=== PATIENT | female | born 1975 | race Caucasian/White ===

== ENCOUNTER 2021-04-20 19:32 | Emergency (ER) | payer OTHER ==
[~2021-04-20] VITALS: Ht 157.5 cm; Wt 54.0 kg
--- NOTE | 2021-04-20 19:50 | PHYS DOC ---
Past History Past Medical History: Cancer General Adult EDM: Chief Complaint: FACE PAIN HPI: HPI: ".. I ve been dizzy off and on for past couple months.. but today I fell down the stairs.. at the foot ball game. " Patient is a 46 year old female who presents with above hx and complaints of being dizzy prior to a fall resulting in facial pain, abrasions and lacerations to his nose bridge.. Patient states that she has had dizzy problems for the past 2-week. Patient denies any loss of consciousness with the fall. Witnesses state there were no seizure activity. She has some mild upper neck tenderness. Has extensive abrasions over facial area with a 1 cm flap laceration to bridge of nose. Patient has obvious mild displacement consistent with bilateral nasal fractures. There is no septal hematoma. Extraocular muscles appear to be intact. No double vision. No loss of field. Fundi limited but grossly intact. Patient also has a contusion with abrasion of the right shoulder area. Patient states sometimes she has a warning that if she is getting lightheaded and sits down. However other times she has no warning which are usually results in a fal l. Patient states the past 2 weeks she has had 6 falls or episodes where she becomes dizzy enough to require her to sit down. Pt. normally follows with Shakir Krishnan for medical care. Hx. Uterine cancer and hysterectomy. Patient is currently following with a neurologist at [facility]. And does have follow-up appointment. Patient denies any previous heart issues. No recent travel. No specific ill contacts. No fever or chills. Patient has had somewhat complex medical history the past year which she was diagnosed with uterine cancer and underwent hysterectomy and oophorectomy. Reportedly had no nodes positive for the cancer. Reportedly cancer cells did exhibit markers that can be followed. Patient normally follows with Adilia Krishnan for care. No history of travel. No history of ill contacts. No history immunosuppression. No history recent fever or chills. Reportedly patient is up-to-date with tetanus. Review of Systems: Review of Systems: Constitutional: Denies fever or chills Eyes: Denies change in visual acuity HENT: Complains of facial pain, abrasions, nasal congestion . Respiratory: Denies cough or shortness of breath Cardiovascular: Denies chest pain or edema GI: Denies abdominal pain, nausea, vomiting, bloody stools or diarrhea : Denies dysuria Musculoskeletal: Denies back pain or joint pain Integument: Denies rash Neurologic: Denies headache, focal weakness or sensory changes. Complains of a near syncopal event and dizzy spell that resulted in fall Endocrine: Denies polyuria or polydipsia Lymphatic: Denies swollen glands Psychiatric: Denies depression or anxiety Family History: Family History: Noncontributory to presentation. Current Medications: Current Meds: See nursing for home meds Allergies: Allergies: Allergic to penicillins Physical Exam: PE: Constitutional: Well developed, well nourished, and acute distress, non-toxic appearance. [] HENT: Normocephalic, facial abrasions and contusions with a 1 cm flap laceration to bridge of nose, bilateral external ears normal, oropharynx moist, has good bite. No oral exudates, nose normal. [] Eyes: PERRLA, EOMI, conjunctiva normal, no discharge. Fundi exam limited but appears to be grossly intact. No field deficits. Neck: Normal range of motion, mild upper neck tenderness no midline tenderness, , supple, no stridor. [] Cardiovascular:Heart rate regular rhythm, no murmur [] Lungs & Thorax: Bilateral breath sounds equal apex on auscultation [] Abdomen: Bowel sounds normal, soft, no tenderness, no masses, no pulsatile masses. Old surgery scars. Skin: Warm, dry, no erythema, no rash. Contusions and abrasions most prominent extremity is in the right shoulder . Back: No tenderness, no CVA tenderness. [] Extremities: Right shoulder tenderness, no cyanosis, no clubbing, ROM intact, no edema. [] Neurologic: Alert and oriented X 3, moves all extremities on request, does have distal sensory,, no focal deficits noted. No drift. [id number]. Ambulatory without problems. DTRs +2 patella and brachial Psychologic: Affect anxious, judgement normal, mood normal. [] Current Patient Data: Labs: Note labs are still not crossing over-my review significant labs shows no murmur CBC with a white count 8.1 hemoglobin 13.2 and platelets 289. Normal electrolytes sodium 141 3.9 potassium 11 BUN creatinine 0.5 glucose 115, UA did show 5-10 white cells however contaminated by squamous cells may represent a low-level infection but will need retesting to clarify. EKG: EKG: My interpretation EKG at 2101 hrs. shows a sinus rhythm at 77 bpm. No acute morphology. [] Radiology/Procedures: Radiology/Procedures: [address] [address] IMAGING REPORT Signed PATIENT: CHANI ESCALERA: [id number] : 1975 LOCATION: ER AGE: 46 SEX: F EXAM STATUS: REG ER ORD. PHYSICIAN: WILBER REILLY MD REASON: fall down stairs. PROCEDURE: CHEST PA & LATERAL Chest radiograph 04/20/2021 8:30 PM INDICATION: Fall down stairs COMPARISON: None available TECHNIQUE: Frontal and lateral views of the chest are provided. FINDINGS: The cardiomediastinal silhouette is within normal limits. There are no pleural effusions. There is no pulmonary vascular congestion. There is no pneumothorax. The lungs are clear. No significant osseous abnormality is identified. IMPRESSION: No acute cardiopulmonary process. Electronically signed by: Kathryn Hopkins MD (04/20/2021 9:19 PM) [facility] DICTATED AND SIGNED BY: KATHRYN HOPKINS MD DATE: 04/20/212117 CC: WILBER REILLY MD; ADILIA KRISHNAN PA ~MTH0 [address] [address] IMAGING REPORT Signed PATIENT: CHANI ESCALERAOUNT: [id number] : 1975 LOCATION: ER AGE: 46 SEX: F EXAM STATUS: REG ER ORD. PHYSICIAN: WILBER REILLY MD REASON: fell face first down concrete stairs PROCEDURE: CT MAXILLOFACIAL WO CONTRAST Exam: CT head and maxillofacial and cervical spine without contrast INDICATION: Fall, face down TECHNIQUE: Sequential axial images through the head, face and cervical spine were obtained without the administration of IV contrast. Exposure: One or more of the following in the visualized dose reduction techniques were utilized for this examination: 1. Automated exposure control 2. Adjustment of the MA and/or KV according to patient size 3. Use of iterative of reconstructive technique Comparisons: None FINDINGS: Head: No focal parenchymal lesion or hemorrhage is identified. There is no midline shift or sulcal effacement. No acute vascular territory infarction is identified. Villa-white distinction is preserved. The ventricular system is within normal limits without compression hydrocephalus. The basal cisterns are well maintained. Face: The visualized portions of the paranasal sinuses and mastoid air cells are well- pneumatized. Bilateral nasal bone fractures are noted. Cervical spine: Straightening of cervical spine which may positional. Vertebral body heights are well-maintained. Fracture to the cervical spine is not identified. No significant spondylotic change of the cervical spine. Visualized paraspinal soft tissues are unremarkable. IMPRESSION: 1. No acute intracranial abnormality. 2. Bilateral nasal bone fractures. 3. Negative CT C-spine for acute traumatic injury. Electronically signed by: Randee Bahena MD (04/20/2021 9:23 PM) [facility] DICTATED AND SIGNED BY: RANDEE BAHENA MD DATE: 04/20/212117 CC: WILBER REILLY MD; ADILIA KRISHNAN ~[facility]0 0 ][place] [address] IMAGING REPORT Signed PATIENT: CHANI ESCALERA LACCOUNT: [id number] : 1975 LOCATION: ER AGE: 46 SEX: F EXAM STATUS: REG ER ORD. PHYSICIAN: WILBER REILLY MD REASON: fall down staris PROCEDURE: SHOULDER 2+V RIGHT XR SHOULDER_RIGHT 2+ VIEWS 04/20/2021 8:30 PM INDICATION: Fall down stairs COMPARISON: None available. TECHNIQUE: 3 views of the right shoulder are provided. FINDINGS/ IMPRESSION: There is no acute fracture or dislocation. Joint spaces are maintained. Bone mineralization is within normal limits. Regional soft tissues are within normal limits. There is no soft tissue gas or osseous erosion. No radiopaque foreign body. Electronically signed by: Kathryn Hopkins MD (04/20/2021 9:19 PM) [facility] DICTATED AND SIGNED BY: KATHRYN HOPKINS MD DATE: 04/20/212118 CC: WILBER REILLY MD; ADILIA KRISHNAN ~MTH0 0 Heart Score: C/O Chest Pain: Yes HEART Score for Chest Pain: HEART Score for Chest Pain Response (Comments) Value History Slighlty/Non-Suspicious 0 ECG Normal 0 Age < 45 0 Risk Factors 1 or 2 Risk Factors 1 Troponin < Normal Limit 0 Total 1 Risk Factors: Risk Factors: DM, Current or recent (<one month) smoker, HTN, HLP, family history of CAD, obesity. Risk Scores: Score 0 - 3: 2.5% MACE over next 6 weeks - Discharge Home Score 4 - 6: 20.3% MACE over next 6 weeks - Admit for Clinical Observation Score 7 - 10: 72.7% MACE over next 6 weeks - Early Invasive Strategies Course & Med Decision Making: Course & Med Decision Making Pertinent Labs and Imaging studies reviewed. (See chart for details) Patient observed in the emergency department for sequela from the fall. Procedure note-wound care and laceration repair-facial lacerations and abrasions cleaned with peroxide and saline. A 1 cm flap laceration to nasal bridge was closed with tissue glue. Patient do not see direct shower water or bath water to the face for the next 3 days. Patient to apply Polysporin ointment to abrasion area of face. Patient has however not to apply the antibiotic ointment to the laceration site because this will dissolve tissue glue. Patient cannot blow nose. She may staff. Will need follow-up with ENT at some point. However on most of these type injury they recommend following up after edema has resolved. Patient to monitor for infection. Return if any concerns. Head injury precautions. Overall plan patient keep follow-up with neurology. Patient will consider cardiology consult. Patient should continue with her post surgery follow-ups for recurrence of cancer. Patient return if any concerns. Recommend patient have repeat testing of her urine on follow-up with primary care since today's specimen was contaminated. Patient return if any concerns tonight. Patient is going home with family patient to return if she has vomiting more than once after returning home. Monitor for mental status changes.. Head injury precautions given. Her frequent falls are very concerning and follow-up as essential. Impression: 1. Dizzy/near syncope event- (recurrent episodes) 2. Fall 3. Facial abrasions and contusions 4. 1 cm flap laceration to bridge of nose 5. Bilateral nasal fractures 6. Right shoulder abrasion and contusion 7. Chest wall contusions 8. History of uterine cancer status post surgery-this year 9. Head injury-concussion [] Rissa Disclaimer: Rissa Disclaimer: This electronic medical record was generated, in whole or in part, using a voice recognition dictation system. Departure Departure: Referrals: ADILIA KRISHNAN (PCP) Rissa Disclaimer This chart was dictated in whole or in part using Voice Recognition software in a busy, high-work load, and often noisy Emergency Department environment. It may contain unintended and wholly unrecognized errors or omissions. WILBER REILLY MD Apr 20, 2021 19:50
[2021-04-20 20:25] LABS: BASO # 0.1 x10^3/uL (0.0-0.2); BASO % 1 % (0-3); EOS # 1.2 x10^3/uL (0.0-0.7); EOS % 15 % (0-3); HEMATOCRIT 39.2 % (36.0-47.0); HEMOGLOBIN 13.2 g/dL (12.0-15.5); LYMPH # 2.1 x10^3/uL (1.0-4.8); LYMPH % 27 % (24-48); MEAN CORPUSCULAR HEMOGLOBIN 30 pg (25-35); MEAN CORPUSCULAR HGB CONC 34 g/dL (31-37); MEAN CORPUSCULAR VOLUME 89 fL (79-100); MONO # 0.6 x10^3/uL (0.0-1.1); MONO % 8 % (0-9); NEUT % 50 % (31-73); PLATELET COUNT 289 x10^3/uL (140-400); RED BLOOD COUNT 4.42 x10^6/uL (3.50-5.40); RED CELL DISTRIBUTION WIDTH 12.9 % (11.5-14.5); WHITE BLOOD COUNT 8.1 x10^3/uL (4.0-11.0)
[2021-04-20 20:29] LABS: BARBITURATES NEG (NEG); BENZODIAZEPINES NEG (NEG); CANNABINOIDS NEG (NEG); COCAINE NEG (NEG); METHADONE NEG (NEG); OPIATES NEG (NEG); PHENCYCLIDINE NEG (NEG)
[2021-04-20] MEDS ORDERED: MORPHINE SULFATE 10 MG/ML SYRINGE. SQ ONE (20:30)
[2021-04-20 20:32] LABS: CALCIUM 9.3 mg/dL (8.5-10.1); CREATININE 0.8 mg/dL (0.6-1.0); GFR 77.9; POTASSIUM 3.9 mmol/L (3.5-5.1)
[2021-04-20 20:34] LABS: AMPHETAMINE/METHAMPHETAMINE NEG (NEG)
[2021-04-20 20:38] LABS: BACTERIA,URINE FEW /HPF (0-FEW); BILIRUBIN,URINE NEG (NEG); CLARITY,URINE CLEAR; COLOR,URINE YELLOW; GLUCOSE,URINE NEG (NEG); NITRITE,URINE NEG (NEG); RBC,URINE OCC /HPF (0-2); SQUAMOUS EPITHELIAL CELL,UR MOD /LPF; UROBILINOGEN,URINE 0.2 mg/dL (0.2 mg/dL)
[2021-04-20 20:44] LABS: MAGNESIUM 2.1 mg/dL (1.8-2.4)
--- NOTE | 2021-04-20 21:21 | RAD ---
XR SHOULDER_RIGHT 2+ VIEWS 04/20/2021 8:30 PM INDICATION: Fall down stairs COMPARISON: None available. TECHNIQUE: 3 views of the right shoulder are provided. FINDINGS/ IMPRESSION: There is no acute fracture or dislocation. Joint spaces are maintained. Bone mineralization is within normal limits. Regional soft tissues are within normal limits. There is no soft tissue gas or osseou s erosion. No radiopaque foreign body. Electronically signed by: Marcela To MD (04/20/2021 9:19 PM) JONATHAN
--- NOTE | 2021-04-20 21:21 | RAD ---
Chest radiograph 04/20/2021 8:30 PM INDICATION: Fall down stairs COMPARISON: None available TECHNIQUE: Frontal and lateral views of the chest are provided. FINDINGS: The cardiomediastinal silhouette is within normal limits. There are no pleural effusions. There is no pulmonary vascular congestion. There is no pneumothorax. The lungs are clear. No significant osseous abnormality is identified. IMPRESSION: No acute cardiopulmonary process. Electronically signed by: Macrela To MD (04/20/2021 9:19 PM) [facility]
--- NOTE | 2021-04-20 21:25 | RAD ---
Exam: CT head and maxillofacial and cervical spine without contrast INDICATION: Fall, face down TECHNIQUE: Sequential axial images through the head, face and cervical spine were obtained without th e administration of IV contrast. Exposure: One or more of the following in the visualized dose reduction techniques were utilized for this examination: 1. Automated exposure control 2. Adjustment of the MA and/or KV according to patient size 3. Use of iterative of reconstructive technique Comparisons: None FINDINGS: Head: No focal parenchymal lesion or hemorrhage is identified. There is no midline shift or sulcal effaceme nt. No acute vascular territory infarction is identified. Villa-white distinction is preserved. The ventricular system is within normal limits without compression hydrocephalus. The basal cisterns are well maintained. Face: The visualized portions of the paranasal sinuses and mastoid air cells are well-pneumatized. Bilatera l nasal bone fractures are noted. Cervical spine: Straightening of cervical spine which may positional. Vertebral body heights are well-maintained. Fracture to the cervical spine is not identified. No significant spondylotic change of the cervical spine. Visualized paraspinal soft tissues are unremarkable. IMPRESSION: 1. No acute intracranial abnormality. 2. Bilateral nasal bone fractures. 3. Negative CT C-spine for acute traumatic injury. Electronically signed by: Randee Miles MD (04/20/2021 9:23 PM) [facility]
[2021-04-20 23:27] VITALS: BP 113/65
--- NOTE | 2021-04-21 04:32 | EKG ---
[address] [address] Test Date: 2021-04-20 Test Time: 21:01:07 Pat Name: CHANI ESCALERA Department: Room: Gender: F Production Analyst: : 1975 Requested By: WILBER REILLY Order Number: [id number] Reading MD: Measurements Intervals [place] Rate: 77 P: 56 WA: 176 QRS: 30 QRSD: 78 T: 31 QT: 376 QTc: 427 Interpretive Statements SINUS RHYTHM NORMAL ECG RI6.02 No previous ECG available for comparison
== END 2021-04-20 23:34 | disposition home or self-care (01) ==
LOC: ER 19:32
DX: S02.2XXA Fracture of nasal bones, initial encounter for closed fracture (principal); S06.0X0A Concussion without loss of consciousness, initial encounter; S01.21XA Laceration without foreign body of nose, initial encounter; S00.83XA Contusion of other part of head, initial encounter; S40.011A Contusion of right shoulder, initial encounter; S20.219A Contusion of unspecified front wall of thorax, initial encounter; R55 Syncope and collapse; Z85.42 Personal history of malignant neoplasm of other parts of uterus; Z88.0 Allergy status to penicillin; W10.8XXA Fall (on) (from) other stairs and steps, initial encounter; Y93.89 Activity, other specified; Y92.89 Other specified places as the place of occurrence of the external cause; Y99.8 Other external cause status
CPT/HCPCS: 12011; 36415; 70450; 70486; 71046; 72125; 73030; 80048; 80307; 81001; 82550; 83735; 83880; 84484; 85025; 85610; 85730; 87086; 93005; 96372; 96374; 99285; J2060; J2270